=== PATIENT | female | born 1990 | race Caucasian/White ===

== ENCOUNTER 2018-11-05 07:20 | Day surgery (SDC) | payer OTHER ==
[2018-11-05] MEDS ORDERED: LR 1,000 ML IV ONE (07:28)
[2018-11-05] MEDS ORDERED: LIDOCAINE 1% 2 ML INJ ID PRN (07:28)
[2018-11-05] MEDS ORDERED: MIDAZOLAM 2 MG/2 ML VIAL IVP ONE ×3 (08:11→09:13)
[2018-11-05] MEDS ORDERED: SCOPOLAMINE HYDROBROMIDE 1 MG/3 DAYS PATCH TD ONE (08:11)
--- NOTE | 2018-11-05 08:16 | PDANEPAE ---
ANE Past Medical History - Cardiovascular History Hx Hypertension: No Hx Arrhythmias: No Hx Chest Pain: No Hx Coronary Artery / Peripheral Vascular Disease: No Hx CHF / Valvular Disease: No Hx Palpitations: No - Pulmonary History Hx COPD: No Hx Asthma/Reactive Airway Disease: No Hx Recent Upper Respiratory Infection: No Hx Oxygen in Use at Home: No Hx Sleep Apnea: No Sleep Apnea Screening Result - Last Documented: Negative Pulmonary History Comment: DVT's + PE - RUL Infarction - Neurologic History Hx Cerebrovascular Accident: No Hx Seizures: No Hx Dementia: No - Endocrine History Hx Diabetes: No Hypothyroid: Yes Obesity: yes Endocrine History Comment: HYPOTHYROID - Renal History Hx Renal Disorders: Yes Renal History Comment: OVERACTIVE - Liver History Hx Hepatic Disorders: No - Neurological & Psychiatric Hx Hx Neurological and Psychiatric Disorders: Yes Neurological / Psychiatric History Comment: DEPRESSION/ANXIETY - Cancer History Hx Cancer: No - Congenital Disorder History Hx Congenital Disorders: Yes Congenital History Comment: FACTOR 8/HEMOPHILLIA CLOTTING DISORDER 2011. FOLLOWED BY ADULT PSYCHIATRIST IN [facility] AT [facility] [address] [facility] - GI History Hx Gastrointestinal Disorders: No - Chronic Pain History Chronic Pain: Yes (ABDOMINAL) - Surgical History Prior Surgeries: LT LEG DVT/3 STENTS PLACED 2012. ECTOPIC RT SO ANE Review of Systems Review of Systems: - Exercise capacity METS (RN): 4 METS ANE Patient History - Allergies Allergies/Adverse Reactions: latex Allergy (Verified 10/14/18 11:26) Hives - Home Medications Home Medications: Effexor Xr DAILY 10/14/18 [Last Taken 1 Day Ago ~11/04/18] Herbals/Supplements -Info Only DAILY 10/14/18 [Last Taken 1 Day Ago ~11/04/18] Synthroid DAILY 10/14/18 [Last Taken 1 Day Ago ~11/04/18] Xarelto DAILY 10/14/18 [Last Taken 11/02/18 20:00] - Smoking Hx Smoking Status: Never smoked ANE Labs/Vital Signs - Vital Signs Vital Signs: reviewed preoperatively; see RN documention for details Height: 177.8 cm Weight: 90.718 kg ANE Physical Exam - Airway Neck exam: FROM Mallampati Score: Class 2 - Pulmonary Pulmonary: no respiratory distress - Cardiovascular Cardiovascular: regular rate and rhythym - ASA Status ASA Status: II ANE Anesthesia Plan Anesthesia Plan: general endotracheal anesthesia
--- NOTE | 2018-11-05 08:54 | PDHPUP ---
History & Physical Update H&P update statement: This history and physical update is based on an assessment of the patient which was completed after admission or registration (within 24 hours), but prior to the surgery/procedure. H&P update: H&P reviewed & patient examined, no change in patient's condition since H&P completed
--- NOTE | 2018-11-05 09:01 | POSTOPPROG ---
Post Op Note Date of Operation: 11/05/18 Surgeon: Valeriy Giles Deck Engineer: Nataliia Holcomb Anesthesiologist: Bronwyn Anesthesia: GET(General Endotracheal) Pre-op Diagnosis: Endometriosis Post-op Diagnosis: Same Procedure: Robotic excision of endo, bilat ureterolysis, chromotubation Findings: Endo, patent tubes Inf/Abcess present in the surg proc area at time of surgery?: No EBL: Minimal Complications: None Bowel Protocol: N/A Clean Closure Performed: N/A
[2018-11-05] MEDS ORDERED: ACETAMINOPHEN 500 MG TAB PO ONE ×2 (09:08→09:13)
[2018-11-05] MEDS ORDERED: GABAPENTIN 300 MG CAP PO ONE ×2 (09:08→09:13)
[2018-11-05] MEDS ORDERED: PHENAZOPYRIDINE HCL 200 MG TAB PO ONE ×2 (09:08→09:13)
[2018-11-05] MEDS ORDERED: ceFAZolin 2 GM/DEXTROSE 100 ML IV ONE (09:13)
[2018-11-05] MEDS ORDERED: fentaNYL 100 MCG/2 ML INJ ONE ×2 (09:21→11:14)
[2018-11-05] MEDS ORDERED: PROPOFOL 200 MG/20 ML VIAL ONE (09:21)
[2018-11-05] MEDS ORDERED: ROCURONIUM 50 MG/5 ML VIAL ONE (09:23)
[2018-11-05] MEDS ORDERED: DEXAMETHASONE 4 MG/ML VIAL ONE (09:23)
[2018-11-05] MEDS ORDERED: BUPIVACAINE/EPI 0.5% 30 ML SDV ONE (09:29)
[2018-11-05] MEDS ORDERED: HYDROmorphONE/DILAUDID 2 MG/ML INJ ONE ×2 (09:55→11:38)
[2018-11-05] MEDS ORDERED: METOCLOPRAMIDE 10 MG/2 ML VIAL ONE (09:58)
[2018-11-05] MEDS ORDERED: ONDANSETRON 4 MG/2 ML VIAL ONE ×2 (10:46→11:39)
[2018-11-05] MEDS ORDERED: KETOROLAC 30 MG/1 ML SDV ONE (10:47)
[2018-11-05] MEDS ORDERED: NALOXONE HCL 0.4 MG/ML INJ IVP PRN (10:49)
[2018-11-05] MEDS ORDERED: DEXAMETHASONE 4 MG/ML VIAL IVP PRN (10:49)
[2018-11-05] MEDS ORDERED: LR 500 ML IV PRN (10:49)
[2018-11-05] MEDS ORDERED: MEPERIDINE 25 MG/0.5 ML AMP IVP PRN (10:49)
[2018-11-05] MEDS ORDERED: ACETAMINOPHEN 500 MG TAB PO PRN (10:49)
[2018-11-05] MEDS ORDERED: ONDANSETRON 4 MG/2 ML VIAL IVP PRN (10:49)
[2018-11-05] MEDS ORDERED: PROMETHAZINE HCL 25 MG/ML INJ IVP PRN (10:49)
[2018-11-05] MEDS ORDERED: oxyCODONE IR 5 MG TAB PO PRN (10:49)
[2018-11-05] MEDS ORDERED: DIAZEPAM 5 MG/ML 1 ML SYR IVP PRN (10:49)
[2018-11-05] MEDS ORDERED: ALBUTEROL 3 ML DEYVIAL IH PRN (10:49)
--- NOTE | 2018-11-05 11:11 | POSTOPPROG ---
Post Op Note Date of Operation: 11/05/18 Surgeon: Valeriy Giles Cardiographer: Nataliia Holcomb Anesthesiologist: Bronwyn Anesthesia: GET(General Endotracheal) Pre-op Diagnosis: Endometriosis Post-op Diagnosis: Same Procedure: Robotic excision of endo, ureterolysis Findings: Endo Inf/Abcess present in the surg proc area at time of surgery?: No EBL: Minimal Complications: None Bowel Protocol: N/A Clean Closure Performed: N/A
[2018-11-05] MEDS: fentaNYL 100 MCG/2 ML INJ IVP PRN ×2 (11:15→11:29)
[2018-11-05] MEDS ORDERED: oxyCODONE IR 5 MG TAB ONE (11:38)
[2018-11-05] MEDS: HYDROmorphONE/DILAUDID 2 MG/ML INJ IVP PRN ×2 (11:42→11:53)
--- NOTE | 2018-11-05 12:04 | POSTANESTH ---
Post Anesthetic Evaluation Cardiovascular Status: Normal, Stable Respiratory Status: Normal, Stable Level of Consciousness/Mental Status: Can Participate in Eval Pain Control: Adequate, Prn Tx Ordered Nausea/Vomiting Control: Adequate, Prn Tx Ordered Complications Possibly Related to Anesthesia: None Noted
[2018-11-05 12:38] VITALS: BP 97/59
--- NOTE | 2018-11-05 13:25 | GOP ---
[f rep st] OPERATIVE REPORT DATE OF OPERATION: 11/05/2018 SURGEON: Valeriy Giles MD CAR REPOSSESSOR: Nataliia Holcomb CFA. ANESTHESIA: General. PREOPERATIVE DIAGNOSIS: 1. Endometriosis. 2. Dysmenorrhea. 3. Cyclic pelvic pain. POSTOPERATIVE DIAGNOSIS: 1. Endometriosis. 2. Dysmenorrhea. 3. Cyclic pelvic pain. PROCEDURE PERFORMED: 1. Robotic excision of endometriosis in anterior and posterior cul-de-sac, bilateral pelvic sidewall s. 2. Excision of sigmoid lesion and adhesions. 3. Bilateral ureterolysis. 4. Bilateral ovariopexy. 5. Excision of left fallopian tube lesion and ovarian lesion. FINDINGS: The patient was found to have endometriosis in both the anterior and posterior cul-de-sac, bilateral pelvic sidewalls, and along both uterosacral ligaments. She had endometriosis on the left ovary greater than the right. She had a benign-appearing lesion on the left fallopian tube. She cortes d a lesion on the sigmoid colon with thick scarring to the left pelvic brim. There was no evidence o f endometriosis in the upper abdomen, specifically none on either diaphragm. SPECIMENS: 1. Pelvic peritoneum with endometriosis. 2. Left ovarian lesion. 3. Left fallopian tube lesion. 1. Sigmoid lesion. 4. ESTIMATED BLOOD LOSS: Scant. DESCRIPTION OF PROCEDURE: The patient was taken to the operating room where she was identified. Gen eral anesthesia was administered and found to be adequate. She was placed in the lithotomy position and prepared and draped in normal sterile fashion. A Moran catheter was placed in her bladder. A Hu lka tenaculum was placed in the uterus for manipulation. An 8 mm infraumbilical incision was then made with a scalpel. The Veress needle with the CO2 gas noemy wing was advanced into the peritoneal cavity. The abdomen was insufflated with carbon dioxide gas. The 8 mm trocar, followed by the laparoscope, were then inserted. The upper abdomen was unremarkable . Two lateral ports were placed in the right, 1 on the left under direct visualization. She then wa s placed in Trendelenburg position and the da Ade robot docked on the left side. The instruments were brought into the abdominal cavity under direct visualization. The findings in t he pelvis were as noted above. The lesion adhering the sigmoid colon to the left pelvic brim was exc ised. This extended into the muscularis. It was then excised from the pelvic side and sent to Patho logy. The anterior cul-de-sac peritoneum was then completely excised. She had a lesion on her left fallopian tube which was excised with the scissors. There was a lesion on the left ovary requiring m inimal entry into the ovarian stroma to excise. The remaining lesions on each ovary were then treate d. A bilateral ovariopexy was performed by attaching each ovary to the ipsilateral round ligament ne ar the internal inguinal ring with 3-0 Vicryl Rapide suture. The entire posterior cul-de-sac periton eum from the distal rectum up to the cervix and laterally to the uterosacral ligaments was then compl etely excised. The patient required a bilateral ureterolysis, given the endometriosis overlying both ureters. The pelvic peritoneum at the brims was incised. The ureters were gently dissected free an d lateralized off the overlying peritoneum and endometriosis from the pelvic brim down to the uterine arteries. Once this was accomplished, the entire pelvic sidewall peritoneum bilaterally was complet lise excised. The pelvis was then irrigated with sterile saline, and hemostasis was present. The robot was then un docked. The skin was closed with 4-0 Monocryl and surgical adhesive. Anesthesia was reversed, and t he patient taken the PACU awake, in stable condition. COMPLICATIONS: None. DISPOSITION: Patient stable to PACU. /[id number]/MODL
== END 2018-11-05 13:25 | disposition home or self-care (01) ==
LOC: FSGY 07:20
PROVIDERS: ATTEND Obstetrics & Gynecology
PROC: 0DBN4ZX Excision of Sigmoid Colon, Percutaneous Endoscopic Approach, Diagnostic (ICD-10-PCS; principal; 2018-11-05 09:00)
PROC: 0TB74ZZ Excision of Left Ureter, Percutaneous Endoscopic Approach (ICD-10-PCS; principal; 2018-11-05 09:00)
PROC: 0UB14ZX Excision of Left Ovary, Percutaneous Endoscopic Approach, Diagnostic (ICD-10-PCS; principal; 2018-11-05 09:00)
PROC: 0DCW4ZZ Extirpation of Matter from Peritoneum, Percutaneous Endoscopic Approach (ICD-10-PCS; principal; 2018-11-05 09:00)
PROC: 0UB64ZX Excision of Left Fallopian Tube, Percutaneous Endoscopic Approach, Diagnostic (ICD-10-PCS; principal; 2018-11-05 09:00)
PROC: 3E0 Administration, Physiological Systems and Anatomical Regions, Introduction (ICD-10-PCS; principal; 2018-11-05 09:00)
PROC: 0TB64ZZ Excision of Right Ureter, Percutaneous Endoscopic Approach (ICD-10-PCS; principal; 2018-11-05 09:00)
DX: N80.3 Endometriosis of pelvic peritoneum (principal); N94.6 Dysmenorrhea, unspecified; N92.0 Excessive and frequent menstruation with regular cycle; D66 Hereditary factor VIII deficiency; Z86.718 Personal history of other venous thrombosis and embolism
CPT/HCPCS: J0690; J1100; J1170; J1885; J2250; J2405; J2704; J2765; J3010